=== PATIENT | male | born 1980 | race Caucasian/White ===

== ENCOUNTER → 2019-12-20 | Outpatient (CLI) | payer OTHER ==
[~2019-12-20] MED LIST: PROHANCE 279.3MG/ML 15ML VIAL (A9576) As Ordered ONE
--- NOTE | 2019-12-20 15:38 | REP ---
MRI brain and posterior fossa IACs study without and with IV contrast: History: Conductive hearing loss unilateral left ear. Unrestricted hearing contralateral side. Technique: Axial, coronal and sagittal imaging planes were utilized. T1 and T2-weighted sequences include spin-echo, fast spin echo, FLAIR, diffusion weighted scans, T1 fat sat postcontrast thin-section and whole brain imaging, and 3-D thin-section T2-weighted imaging through the posterior fossa. The gadolinium enhancement dose is 15 mL of intravenous ProHance. Comparison CT study is from August 15, 2010. MRI findings: Bony calvarium is intact. Craniocervical junction and upper cervical cord are normal in appearance. No intraorbital abnormality is seen. There is minimal mucosal thickening in the maxillary and ethmoid sinuses. Mastoid aeration is normal and symmetric. The internal auditory canals are normal and symmetric with normal appearing seventh and eighth cranial nerves on thin section T2-weighted scans. There is no evidence of intracanalicular or extra canalicular enhancement or mass. No CP angle cistern mass is seen. Diffusion weighted scans show no evidence of restricted diffusion to suggest acute ischemia or other abnormality. There is normal aleman-white differentiation. No significant white matter lesion is appreciated. Postcontrast images show enhancement in normal vascular structures. No abnormal intracranial enhancement is seen. Impression: Negative MRI study of the brain and posterior fossa internal auditory canals. Electronically Signed by Martinez Hernandez MD 12/20/2019 07:06 P
== END ==
LOC: M RAD 08:35
PROVIDERS: ATTEND Otolaryngology
DX: H90.12 Conductive hearing loss, unilateral, left ear, with unrestricted hearing on the contralateral side (principal)
CPT/HCPCS: 70553; A9576

== ENCOUNTER → 2020-06-13 | Outpatient (CLI) | payer OTHER ==
--- NOTE | 2020-08-09 14:40 | SLEEPCENT ---
DATE: 06/13/2020 ORDERED BY: Dr. Lovett at the [facility]. Nocturnal polysomnography was performed for evaluation of sleep physiology. Eight hours and 36 minutes of data were reviewed. There were 443.5 minutes of sleep identified. Sleep latency was mildly prolonged at 34 minutes. REM latency likewise 95.5 minutes. Sleep architecture was fair with four REM cycles. Some fragmentation was seen. Overall sleep efficiency was 86.8%. The patient's electrocardiogram showed a sinus rhythm with an average heart rate 65 beats per minutes. EEG showed reasonably normal waveforms for wake and sleep. There were 89 respiratory events identified of ten seconds in duration or greater for an apnea-hypopnea index of 12. The events were not exclusive to sleep stage, they were more frequent; but not exclusive to posture. Arousals from respiratory events occurred 7.6 times per hour and oxygen desaturations were seen below 90%. IMPRESSION: Obstructive sleep apnea syndrome (G47.33), apnea-hypopnea index 12. RECOMMENDATIONS: The patient should be encouraged to return to [facility]. In the interim, alcohol and sedative avoidance should be practiced and caution exercised during the operation of motor vehicles MTDD
== END ==
LOC: M SLEEP 20:00
PROVIDERS: ATTEND Family Medicine
DX: R53.83 Other fatigue (principal)

== ENCOUNTER → 2020-08-06 | Outpatient (CLI) | payer OTHER ==
--- NOTE | 2020-08-09 10:13 | SLEEPCENT ---
DATE: 08/06/2020 ORDERED BY: Dr. Lovett, [facility] Nocturnal polysomnography was performed for the titration of pressure therapy in this patient with obstructive sleep apnea syndrome. For testing, a ResProbiodrug AirFit F20 full-face mask of medium size was used. There was 4 cm of water pressure applied to the circuit, and the lights were extinguished. There was 8 hours and 6 minutes of data reviewed. There was 393.5 minutes of sleep identified. Sleep latency was mildly prolonged at 20 minutes. REM latency was normal at 92 minutes. Sleep architecture was good with four REM cycles. Overall sleep efficiency was 81.9%. The electrocardiogram showed a sinus rhythm throughout with an average heart rate of 58 beats per minute. EEG showed fairly normal waveforms for wake and sleep. Respiratory events were fully palliated with CPAP at a pressure of +8, and remaining measures of sleep physiology were normal. IMPRESSION: Obstructive sleep apnea syndrome (G47.33). RECOMMENDATION: Nightly use of pressure therapy, 8 cm of water. MTDD
== END ==
LOC: M SLEEP 20:00
PROVIDERS: ATTEND Family Medicine
DX: G47.33 Obstructive sleep apnea (adult) (pediatric) (principal)

== ENCOUNTER 2021-08-05 12:25 | Emergency (ER) | payer OTHER ==
[~2021-08-05] VITALS: Ht 172.7 cm; Wt 84.1 kg
[2021-08-05] MEDS ORDERED: LIDOCAINE 5% (LIDODERM) PATCH TD ONE (17:25)
[2021-08-05] MEDS ORDERED: KETOROLAC 30 MG/ML 1ML VIAL IV ONE (17:25)
[2021-08-05] MEDS ORDERED: diazePAM 10MG/2ML SYRINGE (J3360 PER 5MG) IV ONE (17:25)
[2021-08-05 18:06] LABS: BASO % 0.2 % (0.0-1.0); EOS % 0.1 % (0.0-3.0); HEMATOCRIT 47.8 % (42.0-52.0); HEMOGLOBIN 16.4 g/dl (13.5-17.5); LYMPH # 0.9 10^3/uL (1.5-5.0); LYMPH % 10.4 % (24.0-44.0); MEAN CORPUSCULAR HEMOGLOBIN 32.8 pg (27.0-33.0); MEAN CORPUSCULAR HGB CONC 34.3 g/dl (32.0-36.5); MEAN CORPUSCULAR VOLUME 95.6 fl (80.0-96.0); MONO # 0.9 10^3/uL (0.0-0.8); MONO % 9.7 % (2.0-8.0); NEUTROPHILS # 6.9 10^3/uL (1.5-8.5); NEUTROPHILS % 78.9 % (36.0-66.0); PLATELET COUNT, AUTOMATED 295 10^3/uL (150-450); WHITE BLOOD COUNT 8.8 10^3/uL (4.0-10.0)
[2021-08-05 18:32] LABS: APPEARANCE, URINE CLEAR (CLEAR); BACTERIA, URINE AUTO NEGATIVE (NEGATIVE); BILIRUBIN, URINE AUTO NEGATIVE (NEGATIVE); BLOOD, URINE BLOOD NEGATIVE (NEGATIVE); COLOR, URINE YELLOW (YELLOW); GLUCOSE, URINE (UA) AUTO NEGATIVE (NEGATIVE); KETONE, URINE AUTO TRACE mg/dL (NEGATIVE); LEUKOCYTE ESTERASE, URINE AUTO NEGATIVE (NEGATIVE); NITRITE, URINE AUTO NEGATIVE (NEGATIVE); PROTEIN, URINE AUTO NEGATIVE (NEGATIVE); RBC, URINE AUTO 1 /HPF (0-3); SPECIFIC GRAVITY URINE AUTO 1.009 (1.002-1.035); SQUAMOUS EPITHELIAL CELL UR AU 0 /HPF (0-6); UROBILINOGEN, URINE AUTO 0.2 mg/dL (0.0-2.0); WBC, URINE AUTO 0 /HPF (0-3)
--- NOTE | 2021-08-05 19:12 | REPVR ---
PROCEDURE INFORMATION: Exam: MR Lumbar Spine Without Contrast Exam date and time: 08/05/2021 6:43 PM Age: 40 years old Clinical indication: Low back pain; Additional info: Severe PT tender lumbar, muscle weakness TECHNIQUE: Imaging protocol: Multiplanar magnetic resonance images of the lumbar spine without intravenous contrast. COMPARISON: No relevant prior studies available. FINDINGS: Vertebrae: Anatomic alignment. No acute fracture seen. Spinal cord: The conus medullaris ends normally. Disc desiccation with mild posterior disc height loss at L5-S1. L1-L2: No significant disc disease. No significant spinal canal stenosis. No neural foraminal stenosis. L2-L3: No significant disc disease. No significant spinal canal stenosis. No neural foraminal stenosis. L3-L4: No significant disc disease. No significant spinal canal stenosis. No neural foraminal stenosis. L4-L5: No significant disc disease. No significant spinal canal stenosis. No neural foraminal stenosis. L5-S1: Mild disc bulge as well as mild to moderate facet arthropathy. 2-3 mm right paracentral disc protrusion with high-intensity zone. The central spinal canal remains patent. No evidence of S1 nerve root impingement. The neural foramina remain patent. Soft tissues: Unremarkable. No evidence of muscle strain or ligamentous injury. Urinary bladder: The bladder is distended. IMPRESSION: Mild degenerative changes at L5-S1. Electronically signed by: Clarissa Regan On 08/05/2021 19:12:24 PM
[2021-08-05] MEDS ORDERED: MORPHINE 4 MG/ML 1ML VIAL/SYRINGE (J2270) IV ONE (20:15)
[2021-08-05] MEDS ORDERED: ONDANSETRON 4MG/2ML VIAL IV ONE (20:15)
[2021-08-05] MEDS ORDERED: **NOTE PATIENT COMMENT** MISC XX SCH (21:00)
[2021-08-05] MEDS ORDERED: METHOCARBAMOL 1,000 MG/10 ML VIAL (J2800) IV ONE (21:30)
[2021-08-05] MEDS ORDERED: NAPR-837 PO (21:32)
[2021-08-05] MEDS ORDERED: ASPE4PAD TOP (21:32)
[2021-08-05] MEDS ORDERED: HYDR-3713 PO (21:32)
[2021-08-05] MEDS ORDERED: METH-1165 PO (21:32)
[2021-08-05 21:51] VITALS: BP 146/82
== END 2021-08-05 22:29 | disposition home or self-care (01) ==
LOC: M ED 12:25
DX: M54.5 Low back pain (principal); Z79.899 Other long term (current) drug therapy
CPT/HCPCS: 72148; 81001; 85025; 96374; 96375; 99284; J1885; J2270; J2405; J2800; J3360

== ENCOUNTER → 2023-06-22 | Outpatient (CLI) | payer OTHER ==
[~2023-06-22] MED LIST changes: +ASPE4PAD TOP; +HYDR-3713 PO; +METH-1165 PO; +NAPR-837 PO; -PROHANCE 279.3MG/ML 15ML VIAL (A9576) As Ordered ONE
== END ==
LOC: M RAD 09:14
PROVIDERS: ATTEND Nurse Practitioner Family
DX: R51.9 Headache, unspecified (principal); J32.9 Chronic sinusitis, unspecified

== ENCOUNTER → 2024-10-31 | Outpatient (REF) | LOC: M PLAIMG 09:49 | PROVIDERS: ATTEND Nurse Practitioner Family | DX: M25.562 Pain in left knee (principal) ==

== ENCOUNTER 2025-10-03 08:56 | Day surgery (SDC) | payer OTHER ==
[~2025-10-03] VITALS: Ht 172.7 cm; Wt 74.4 kg
[~2025-10-03 08:56] MED LIST changes: +ASCO500C3 PO; +LOSA50TA28 PO; +NAPR-885 PO; +PROP60TA14 PO
[2025-10-03] MEDS ORDERED: LIDOCAINE 2% 100 MG/5 ML SDV (FOR ANES.) As Ordered ONE (09:31)
[2025-10-03 10:32] VITALS: TEMP 97.9
[2025-10-03 10:53] VITALS: BP 127/80; O2SAT 100
== END 2025-10-03 10:54 | disposition home or self-care (01) ==
LOC: M OPP 08:56
PROVIDERS: ATTEND Surgery
DX: Z12.11 Encounter for screening for malignant neoplasm of colon (principal); R19.5 Other fecal abnormalities; K64.0 First degree hemorrhoids; G47.30 Sleep apnea, unspecified; Z79.899 Other long term (current) drug therapy

== ENCOUNTER → 2025-10-30 | Outpatient (CLI) | payer OTHER | LOC: M RAD 15:36 | PROVIDERS: ATTEND Registered Nurse | DX: R22.9 Localized swelling, mass and lump, unspecified (principal) ==